=== PATIENT | female | born 1990 | race Two or more races ===

== ENCOUNTER → 2025-08-03 | Outpatient (CLI) | payer OTHER ==
[2025-08-03 14:16] LABS: PLATELET COUNT, AUTOMATED 349 10^3/uL (150-450)
[2025-08-03 14:46] LABS: ESTIMATED AVERAGE GLUCOSE 120.0 MG/DL (60-110)
[2025-08-03 14:51] LABS: HIV 1&2 SCREEN NEGATIVE (NEGATIVE)
[2025-08-03 14:59] LABS: HEPATITIS C VIRUS ABY INDEX < 0.02 INDEX (<0.8)
[2025-08-03 15:06] LABS: GC DNA AMPLIFICATION NEGATIVE (NEGATIVE)
[2025-08-03 15:52] LABS: Trichomonas vaginalis (AMP) NOT DETECTED (NEGATIVE)
== END ==
LOC: M PLALAB 10:40
PROVIDERS: ATTEND Advanced Practice Midwife
DX: Z34.80 Encounter for supervision of other normal pregnancy, unspecified trimester (principal)

== ENCOUNTER → 2025-09-03 | Outpatient (CLI) | payer OTHER | LOC: M PLALAB 11:19 | PROVIDERS: ATTEND Advanced Practice Midwife | DX: Z34.91 Encounter for supervision of normal pregnancy, unspecified, first trimester (principal) ==